=== PATIENT | male | born 1995 | race American Indian/Alaskan Native ===

== ENCOUNTER 2018-02-08 11:33 | Emergency (ER) | payer BC, OTHER ==
[2018-02-08] MEDS ORDERED: Ketorolac 30 MG/ML SDV IM ONE (13:07)
--- NOTE | 2018-02-08 13:18 | EDM.PDOC ---
ED HPI GENERAL MEDICAL PROBLEM - General Chief Complaint: Back Pain or Injury Stated Complaint: BACK PAINS [id number] Time Seen by Provider: 02/08/18 13:03 Source of Information: Reports: Patient, RN, RN Notes Reviewed History Limitations: Reports: No Limitations - History of Present Illness INITIAL COMMENTS - FREE TEXT/NARRATIVE: Pt presents to the ER with c/o low back pain. He states when he was dressing this morning he stretched and felt a pop. He states the pain has been constant since then. Patient denies numbness or tingling, pain radiation. Onset: Today, Sudden Duration: Constant Location: Reports: Back Back Pain Score (Numeric/FACES): 7 - Related Data Allergies Allergy/AdvReac Type Severity Reaction Status Date / Time No Known Allergies Allergy Verified 02/08/18 11:55 Home Meds: Home Meds . [No Known Home Meds] 02/08/18 [History] Past Medical History Cardiovascular History: Reports: None Respiratory History: Reports: None Gastrointestinal History: Reports: None Genitourinary History: Reports: None Musculoskeletal History: Reports: None Neurological History: Reports: None Psychiatric History: Reports: None Endocrine/Metabolic History: Reports: None Hematologic History: Reports: None Immunologic History: Reports: None Oncologic (Cancer) History: Reports: None Dermatologic History: Reports: None - Infectious Disease History Infectious Disease History: Reports: Chicken Pox - Past Surgical History Other HEENT Surgeries/Procedures: facial surgery GI Surgical History: Reports: Appendectomy Social & Family History - Tobacco Use Smoking Status *Q: Current Every Day Smoker Years of Tobacco use: 10 Packs/Tins Daily: 0.5 Second Hand Smoke Exposure: No - Caffeine Use Caffeine Use: Reports: Coffee - Recreational Drug Use Recreational Drug Use: No ED ROS GENERAL - Review of Systems Review Of Systems: ROS reveals no pertinent complaints other than HPI. ED EXAM,LOWER BACK PAIN/INJURY - Physical Exam Exam: See Below Exam Limited By: No Limitations General Appearance: Alert, WD/WN, Mild Distress Eye Exam: Bilateral Eye: EOMI, Normal Inspection, PERRL Ears: Normal External Exam, Hearing Grossly Normal Nose: Normal Inspection Throat/Mouth: Normal Inspection, Normal Voice, No Airway Compromise Head: Atraumatic, Normocephalic Neck: Normal Inspection, Supple, Non-Tender, Full Range of Motion Respiratory/Chest: No Respiratory Distress, Lungs Clear, Normal Breath Sounds, No Accessory Muscle Use, Chest Non-Tender Cardiovascular: Normal Peripheral Pulses, Regular Rate, Rhythm, No Edema, No Gallop, No JVD, No Murmur, No Rub GI/Abdominal: Normal Bowel Sounds, Soft, Non-Tender, No Organomegaly, No Distention, No Abnormal Bruit, No Mass (Male) Exam: Deferred Rectal (Males) Exam: Deferred Back Exam: Normal Inspection, Decreased Range of Motion, Muscle Spasm Extremities: Normal Inspection, Normal Range of Motion, Non-Tender, No Pedal Edema, Normal Capillary Refill Neurological: Alert, Normal Mood/Affect, Normal Dorsiflexion, CN II-XII Intact, Normal Plantar Flexion, Normal Gait, Normal Reflexes, No Motor/Sensory Deficits , Oriented x 3 Psychiatric: Normal Affect, Normal Mood Skin Exam: Warm, Dry, Intact, Normal Color, No Rash Lymphatic: No Adenopathy Course - Vital Signs Last Recorded V/S: Last Vital Signs Temp 98.7 F 02/08/18 11:50 Pulse 77 02/08/18 11:50 Resp 16 02/08/18 11:50 BP 115/83 02/08/18 11:50 Pulse Ox 100 02/08/18 11:50 - Orders/Labs/Meds Meds: Medications Discontinued Medications Generic Name Dose Route Start Last Admin Trade Name Damaso PRN Reason Stop Dose Admin Ketorolac Tromethamine 60 mg 02/08/18 13:07 Toradol IM 02/08/18 13:08 ONETIME ONE Departure - Departure Time of Disposition: 13:17 Disposition: Home, Self-Care 01 Condition: Fair Clinical Impression: Muscle strain - Discharge Information Instructions: Muscle Strain, [id number] Additional Instructions: RX: Flexeril, Diclofenac Follow up with your primary care facility Light duty for lifting until pain is improved.
== END 2018-02-08 13:27 | disposition home or self-care (01) ==
LOC: DL.ED 11:33
DX: S39.012A Strain of muscle, fascia and tendon of lower back, initial encounter (principal); F17.210 Nicotine dependence, cigarettes, uncomplicated; X50.1XXA Overexertion from prolonged static or awkward postures, initial encounter
CPT/HCPCS: 96372; 99283; J1885

== ENCOUNTER 2020-02-08 02:30 | Emergency (ER) | payer BC ==
[2020-02-08] MEDS ORDERED: Ondansetron 4 MG/2 ML SDV IVPUSH ONE (02:48)
[2020-02-08] MEDS ORDERED: Pantoprazole 40 MG Vial IVPUSH ONE (02:48)
[2020-02-08] MEDS ORDERED: MVI, Adult with Vitamin K 10 ML, Folic Acid 1 MG, Thiamine 100 MG in Lactated Ringers 1... IV ONE ×4 (02:50)
--- NOTE | 2020-02-08 02:52 | EDM.PDOC ---
ED HPI GENERAL MEDICAL PROBLEM - General Chief Complaint: Gastrointestinal Problem Stated Complaint: AMBULANCE Time Seen by Provider: 02/08/20 02:50 Source of Information: Reports: Patient History Limitations: Reports: No Limitations - History of Present Illness INITIAL COMMENTS - FREE TEXT/NARRATIVE: admits to drinking tonight for fun and vomited blood in toilet. got scared and called EMS. Abdomen Pain Score (Numeric/FACES): 6 - Related Data Allergies Allergy/AdvReac Type Severity Reaction Status Date / Time No Known Allergies Allergy Verified 02/08/20 02:50 Home Meds: Home Meds . [No Known Home Meds] 02/08/18 [History] Past Medical History Cardiovascular History: Reports: None Respiratory History: Reports: None Gastrointestinal History: Reports: None Genitourinary History: Reports: None Musculoskeletal History: Reports: None Neurological History: Reports: None Psychiatric History: Reports: None Endocrine/Metabolic History: Reports: None Hematologic History: Reports: None Immunologic History: Reports: None Oncologic (Cancer) History: Reports: None Dermatologic History: Reports: None - Infectious Disease History Infectious Disease History: Reports: Chicken Pox - Past Surgical History Other HEENT Surgeries/Procedures: facial surgery GI Surgical History: Reports: Appendectomy Social & Family History - Tobacco Use Smoking Status *Q: Current Every Day Smoker Years of Tobacco use: 12 Packs/Tins Daily: 0.5 - Caffeine Use Caffeine Use: Reports: Energy Drinks, Soda - Alcohol Use Date of Last Drink: 02/07/20 Time of Last Drink: 22:00 - Recreational Drug Use Recreational Drug Use: Yes Drug Use in Last 12 Months: Yes Recreational Drug Type: Reports: Marijuana/Hashish Recreational Drug Use Frequency: Daily Recreational Drug Last Use: 02/07/2020 ED ROS GENERAL - Review of Systems Review Of Systems: Comprehensive ROS is negative, except as noted in HPI. ED EXAM, GI/ABD - Physical Exam Exam: See Below Exam Limited By: No Limitations General Appearance: Alert, WD/WN, No Apparent Distress, Other (intox, co-op) Ears: Hearing Grossly Normal Throat/Mouth: Normal Voice, No Airway Compromise Head: Atraumatic Neck: Non-Tender, Full Range of Motion Respiratory/Chest: No Respiratory Distress Cardiovascular: Regular Rate, Rhythm GI/Abdominal Exam: Soft, Non-Tender, Other (BS hyper). No: Guarding, Rigid, Rebound Neurological: Alert, Oriented, Normal Cognition, No Motor/Sensory Deficits Psychiatric: Normal Affect, Normal Mood Skin Exam: Warm, Dry, Normal Color Lymphatic: No Adenopathy Course - Vital Signs Last Recorded V/S: Last Vital Signs Temp 36.1 C 02/08/20 02:35 Pulse 69 02/08/20 02:35 Resp 19 02/08/20 02:35 BP 111/65 02/08/20 02:35 Pulse Ox 100 02/08/20 02:35 - Orders/Labs/Meds Labs: Laboratory Tests 02/08/20 02/08/20 02/08/20 Range/Units 02:40 02:40 03:18 WBC 12.1 H (5.0-10.0) 10^3/uL RBC 5.11 (4.6-6.2) 10^6/uL Hgb 15.7 (14.0-18.0) g/dL Hct 43.7 (40.0-54.0) % MCV 85.5 (80-100) fL MCH 30.7 (27.0-34.0) pg MCHC 35.9 H (33.0-35.0) g/dL Plt Count 273 (150-450) 10^3/uL Neut % (Auto) 77.8 H (42.2-75.2) % Lymph % (Auto) 14.1 L (20.5-50.1) % Griggs % (Auto) 6.2 (2-8) % Eos % (Auto) 1.3 (1.0-3.0) % Baso % (Auto) 0.6 (0.0-1.0) % Sodium 140 (136-145) mmol/L Potassium 3.1 L (3.5-5.1) mmol/L Chloride 101 (98-107) mmol/L Carbon Dioxide 27 (21-32) mmol/L Anion Gap 15.1 H (7-13) mEq/L BUN 12 (7-18) mg/dL Creatinine 0.92 (0.70-1.30) mg/dL Est Cr Clr Drug Dosing 123.24 mL/min Estimated GFR (MDRD) > 60 BUN/Creatinine Ratio 13.0 (No establ ref range) Glucose 99 (74-99) mg/dL Calcium 8.4 L (8.5-10.1) mg/dL Total Bilirubin 0.4 (0.2-1.0) mg/dL AST 18 (15-37) U/L ALT 19 (16-63) U/L Alkaline Phosphatase 85 (46-116) U/L Total Protein 7.1 (6.4-8.2) g/dL Albumin 4.7 (3.4-5.0) g/dL Globulin 2.4 Albumin/Globulin Ratio 2.0 Amylase 69 (25-115) U/L Lipase 398 H (73-393) U/L Urine Opiates Screen Negative (NEGATIVE) Ur Oxycodone Screen Negative (NEGATIVE) Urine Methadone Screen Negative (NEGATIVE) Ur Barbiturates Screen Negative (NEGATIVE) U Tricyclic Antidepress Negative (NEGATIVE) Ur Phencyclidine Scrn Negative (NEGATIVE) Ur Amphetamine Screen Negative (NEGATIVE) U Methamphetamines Scrn Negative (NEGATIVE) Urine MDMA Screen Negative (NEGATIVE) U Benzodiazepines Scrn Negative (NEGATIVE) Urine Cocaine Screen Negative (NEGATIVE) U Marijuana (THC) Screen Positive H (NEGATIVE) Ethyl Alcohol 135 (0) mg/dL Meds: Medications Discontinued Medications Generic Name Dose Route Start Last Admin Trade Name Anastacioq PRN Reason Stop Dose Admin Multivitamins/Minerals 10 ml/ 1,011.2 mls @ 999 mls/hr 02/08/20 02:50 02:59 Folic Acid 1 mg/ Thiamine HCl IV 02/08/20 03:50 999 mls/hr 100 mg/ Lactated Ringer's ONETIME ONE Administration Ondansetron HCl 4 mg 02/08/20 02:48 02/08/20 02:56 Zofran IVPUSH 02/08/20 02:49 4 mg ONETIME ONE Administration Pantoprazole Sodium 80 mg 02/08/20 02:48 02/08/20 02:58 Protonix Iv IVPUSH 02/08/20 02:49 80 mg .BOLUS ONE Administration - Re-Assessments/Exams Free Text/Narrative Re-Assessment/Exam: 02/08/20 03:38 results discussed with pt who is feeling much better s/p IV + Rx. states won't drink anymore. states was drinking red coloured liquor. pt had no further vomiting in ER. Departure - Departure Time of Disposition: 03:39 Disposition: Home, Self-Care 01 Condition: Good Clinical Impression: Gastritis Qualifiers: Gastritis type: alcoholic Chronicity: acute Gastritis bleeding: without bleeding Qualified Code(s): K29.20 - Alcoholic gastritis without bleeding - Discharge Information Instructions: Gastritis, Adult, [id number] Forms: ED Department Discharge Additional Instructions: 1) avoid alcohol 2) liquid diet next 48 hours Sepsis Event Note - Evaluation Sepsis Screening Result: No Definite Risk - Focused Exam Vital Signs: Vital Signs Temp Pulse Resp BP Pulse Ox 02/08/20 02:35 36.1 C 69 19 111/65 100 Date Exam was Performed: 02/08/20 Time Exam was Performed: 06:22
[2020-02-08 03:04] LABS: ANION GAP 15.1 mEq/L (7-13); CHLORIDE,CL 101 mmol/L (98-107); SODIUM,NA 140 mmol/L (136-145)
== END 2020-02-08 03:43 | disposition home or self-care (01) ==
LOC: DL.ED 02:30
DX: K29.20 Alcoholic gastritis without bleeding (principal)
CPT/HCPCS: 36415; 80053; 80305; 80307; 82150; 83690; 85025; 96365; 96375; 99284; C9113; J2405; J3411; J7120; J3490

== ENCOUNTER 2021-09-10 20:22 | Emergency (ER) | payer BC, OTHER ==
[2021-09-10] MEDS ORDERED: Diphtheria,Pertussis(Acell),Tetanus Vaccine 0.5 ML Syringe IM ONE (20:53)
--- NOTE | 2021-09-10 21:22 | EDM.PDOC ---
ED HPI GENERAL MEDICAL PROBLEM - General Chief Complaint: Upper Extremity Injury/Pain Stated Complaint: SMASHED FINGER WITH SLEDGE HAMMER Time Seen by Provider: 09/10/21 21:20 Source of Information: Reports: Patient, RN History Limitations: Reports: No Limitations - History of Present Illness INITIAL COMMENTS - FREE TEXT/NARRATIVE: smashed index and 3rd finger with sledge hammer today around 1 pm while at work, tip of finger swollen and painful, skinned knuckle on 3rd finger Hand Pain Score (Numeric/FACES): 8 - Related Data Allergies Allergy/AdvReac Type Severity Reaction Status Date / Time No Known Allergies Allergy Verified 09/10/21 21:19 Home Meds: Home Meds . [No Known Home Meds] 02/08/18 [History] Past Medical History Cardiovascular History: Reports: None Respiratory History: Reports: None Gastrointestinal History: Reports: None Genitourinary History: Reports: None Musculoskeletal History: Reports: None Neurological History: Reports: None Psychiatric History: Reports: None Endocrine/Metabolic History: Reports: None Hematologic History: Reports: None Immunologic History: Reports: None Oncologic (Cancer) History: Reports: None Dermatologic History: Reports: None - Infectious Disease History Infectious Disease History: Reports: Chicken Pox - Past Surgical History Other HEENT Surgeries/Procedures: facial surgery GI Surgical History: Reports: Appendectomy Social & Family History - Caffeine Use Caffeine Use: Reports: Energy Drinks, Soda Review of Systems - Review of Systems Review Of Systems: Comprehensive ROS is negative, except as noted in HPI. ED EXAM, GENERAL - Physical Exam Exam: See Below Exam Limited By: No Limitations General Appearance: Alert, Mild Distress Eye Exam: Bilateral Eye: EOMI Ears: Normal External Exam Nose: Normal Inspection Throat/Mouth: Normal Inspection Neck: Normal Inspection Respiratory/Chest: No Respiratory Distress, Normal Breath Sounds Cardiovascular: Normal Peripheral Pulses, Regular Rate, Rhythm Extremities: Other (left index, dip to tip swollen bleb, cadrozo surface, small bruicing below medial nail, small latera distal nail torn. ). No: Normal Inspection Neurological: Alert, Oriented, Normal Cognition Skin Exam: Warm, Dry, Ecchymosis, Wound/Incision (superficial abrasion knuckles right hand ), Other (subungal bleeding right index., fatpad superficial blister callous right index ) ED TRAUMA EXTREMITY PROCEDURES - Additional/Other Procedure(s) Other (Free Text) Procedure(s): Cautery to right index, nail to alleviate pressure, Cleansed with betadine prior. Tolerated well, small amount initial thick bloody drainage. Tube gauze dressing. Course - Vital Signs Last Recorded V/S: Last Vital Signs Temp 98.7 F 09/10/21 21:16 Pulse 81 09/10/21 21:16 Resp 16 09/10/21 21:16 BP 127/74 09/10/21 21:16 Pulse Ox 99 09/10/21 21:16 - Orders/Labs/Meds Meds: Medications Discontinued Medications Generic Name Dose Route Start Last Admin Trade Name Damaso PRN Reason Stop Dose Admin Bacitracin 1 dose 09/10/21 22:34 09/10/21 22:46 Bacitracin Oint 1 Gm U/D Packet TOP 09/10/21 22:35 1 dose ONETIME ONE Administration Diphtheria/Tetanus/Acell Pertussis 0.5 ml 09/10/21 20:53 09/10/21 22:46 Diphtheria,Pertussis(Acell),Tetanus Vaccine 0.5 Ml Syringe IM 09/10/21 20:54 0.5 ml .ONCE ONE Administration Ibuprofen 600 mg 09/10/21 22:36 09/10/21 22:46 Ibuprofen 600 Mg Tab PO 09/10/21 22:37 600 mg ONETIME ONE Administration Departure - Departure Time of Disposition: 22:35 Disposition: Home, Self-Care 01 Condition: Good Clinical Impression: Crush accident, Contusion, Nail splinter hemorrhage - Discharge Information *PRESCRIPTION DRUG MONITORING PROGRAM REVIEWED*: No *COPY OF PRESCRIPTION DRUG MONITORING REPORT IN PATIENT SHANTE: No Instructions: Contusion Referrals: PCP,None [Primary Care Provider] - Forms: ED Department Discharge Additional Instructions: alternate tylenol and ibuprofen 600mg every 4 hours as needed for discomfort elevate fingers antibiotic ointment bandage to open area change dressing twice daily splint for protection clinic follow up next week if not improving urgent follow up severe pain, redness, numbness or drainage from wounds Sepsis Event Note (ED) - Focused Exam Vital Signs: Vital Signs Temp Pulse Resp BP Pulse Ox 09/10/21 21:16 98.7 F 81 16 127/74 99
--- NOTE | 2021-09-10 21:41 | CR ---
PROCEDURE INFORMATION: Exam: XR Right Hand Exam date and time: 09/10/2021 9:10 PM Age: 26 years old Clinical indication: Other: Hit distal index finger with hammer/pain; Additional info: Hit with sledge hammer TECHNIQUE: Imaging protocol: XR Right hand. Views: 3 or more views. COMPARISON: No relevant prior studies available. FINDINGS: Bones/joints: No acute fracture. No dislocation. Normal bone mineralization. No joint effusion. Joint spaces are maintained. Soft tissues: No soft tissue swelling. No radiopaque foreign body. IMPRESSION: No acute fracture. Followup imaging recommended in 7-14 days if clinical concern for fracture persists.
[2021-09-10] MEDS ORDERED: Bacitracin Oint 1 GM U/D Packet TOP ONE (22:34)
[2021-09-10] MEDS ORDERED: Ibuprofen 600 MG Tab PO ONE (22:36)
== END 2021-09-10 22:54 | disposition home or self-care (01) ==
LOC: DL.ED 20:22
DX: S60.450A Superficial foreign body of right index finger, initial encounter (principal); S60.121A Contusion of right index finger with damage to nail, initial encounter; L60.8 Other nail disorders; Z23 Encounter for immunization; W23.0XXA Caught, crushed, jammed, or pinched between moving objects, initial encounter; Y92.89 Other specified places as the place of occurrence of the external cause; Y99.0 Civilian activity done for income or pay
CPT/HCPCS: 73130; 90471; 90715; 99283; A9270

== ENCOUNTER 2021-10-12 15:58 | Emergency (ER) | payer SELFPAY | END 2021-10-12 19:03 | disposition left against medical advice (07) | LOC: DL.ED 15:58 | DX: Z53.21 Procedure and treatment not carried out due to patient leaving prior to being seen by health care provider (principal) ==

== ENCOUNTER 2022-02-14 17:17 | Emergency (ER) | payer OTHER ==
[2022-02-14] MEDS ORDERED: Bacitracin Oint 1 GM U/D Packet TOP ONE (18:31)
[2022-02-14] MEDS ORDERED: Lidocaine 1% 30 ML SDV INJECT ONE (18:32)
== END 2022-02-14 19:28 | disposition home or self-care (01) ==
LOC: DL.ED 17:17
DX: S61.211A Laceration without foreign body of left index finger without damage to nail, initial encounter (principal); W26.8XXA Contact with other sharp object(s), not elsewhere classified, initial encounter; Y99.0 Civilian activity done for income or pay
CPT/HCPCS: 12001; 99282-25; 99283

== ENCOUNTER 2023-11-26 21:32 | Emergency (ER) | payer SELFPAY ==
[2023-11-26] MEDS ORDERED: Ketorolac 30 MG/ML SDV IM ONE (22:01)
[2023-11-26] MEDS ORDERED: Take Home: Doxycycline 100 MG Cap, 4 Cap Pack PO ONE (22:27)
== END 2023-11-26 22:50 | disposition home or self-care (01) ==
LOC: DL.ED 21:32
DX: S02.40FA Zygomatic fracture, left side, initial encounter for closed fracture (principal); S02.2XXA Fracture of nasal bones, initial encounter for closed fracture; Z90.49 Acquired absence of other specified parts of digestive tract; Y04.2XXA Assault by strike against or bumped into by another person, initial encounter
CPT/HCPCS: 70450; 70486; 72125; 96372; 99283; A9270-GY; J1885